=== PATIENT | male | born 1990 | race Caucasian/White ===

== ENCOUNTER 2022-09-22 07:04 | Emergency (ER) | payer BC, MEDICAID, OTHER ==
[~2022-09-22] VITALS: Ht 177.8 cm; Wt 88.6 kg
[2022-09-22 08:00] VITALS: BP 140/77
[2022-09-22] MEDS ORDERED: TETRACAINE HCL 0.5% OPTH(EYE) SOLN 4ML LEFTEYE ONE (08:30)
[2022-09-22] MEDS ORDERED: FLUORESCEIN SOD OPTH TEST STRIP LEFTEYE ONE ×2 (08:30→08:45)
[2022-09-22] MEDS ORDERED: ERY05OO OP (09:23)
== END 2022-09-22 10:12 | disposition home or self-care (01) ==
LOC: ER 07:04
DX: T15.02XA Foreign body in cornea, left eye, initial encounter (principal); W45.8XXA Other foreign body or object entering through skin, initial encounter; Y93.89 Activity, other specified; Y92.89 Other specified places as the place of occurrence of the external cause; Y99.8 Other external cause status